=== PATIENT | male | born 1955 | race Caucasian/White ===

== ENCOUNTER → 2024-07-12 06:27 | Day surgery (SDC) | payer MEDICARE, OTHER, SELFPAY ==
[2024-07-12 08:27] LABS: Glucose - Point of Care 126 mg/dl (70-99)
== END ==
LOC: GI 06:27
PROVIDERS: ATTENDING PHYSICIAN Internal Medicine Gastroenterology
DX: Z12.11 Encounter for screening for malignant neoplasm of colon (principal); R19.5 Other fecal abnormalities; K64.8 Other hemorrhoids; K63.5 Polyp of colon; K57.30 Diverticulosis of large intestine without perforation or abscess without bleeding; R13.10 Dysphagia, unspecified; K44.9 Diaphragmatic hernia without obstruction or gangrene; K22.2 Esophageal obstruction; Z98.0 Intestinal bypass and anastomosis status
CPT/HCPCS: 43249; 45385; 88305; 82962; 88341; 88342

== ENCOUNTER → 2024-12-29 10:52 | Outpatient (REF) | payer MEDICARE, OTHER, SELFPAY | LOC: HWRAD 10:52 | PROVIDERS: ATTENDING PHYSICIAN Internal Medicine Critical Care Medicine; FAMILY PHYSICIAN Internal Medicine | DX: F17.210 Nicotine dependence, cigarettes, uncomplicated (principal) | CPT/HCPCS: 71271 ==

== ENCOUNTER → 2025-01-21 09:38 | Outpatient (REF) | payer MEDICARE, OTHER, SELFPAY | LOC: HWRAD 09:38 | PROVIDERS: ATTENDING PHYSICIAN Nurse Practitioner Family; FAMILY PHYSICIAN Internal Medicine | DX: M54.50 Low back pain, unspecified (principal) | CPT/HCPCS: 72110 ==

== ENCOUNTER 2025-05-16 13:02 | Emergency (ER) | payer MEDICARE, OTHER, SELFPAY ==
[2025-05-16 13:04] VITALS: BP 171/98
[2025-05-16 13:24] VITALS: BP 136/89
[2025-05-16] MEDS: PEPCID 40 MG PO (13:58)
[2025-05-16] MEDS: DECADRON 10 MG PO (13:58)
[2025-05-16 14:00] VITALS: BP 127/77
--- NOTE | 2025-05-16 14:08 | ED.GENMED ---
History of Present Illness
General
Chief Complaint: Allergic Reaction
Source: patient
Exam Limitations: none
Time Seen by Provider: 05/16/25 13:35
Nursing documentation reviewed up to this point in time: agreed with
History of Present Illness
History of Present Illness:
69-year-old male past medical history of COPD hypertension hyperlipidemia presenting to the emergency department today with concerns of multiple bee stings prior to arrival. Has significant swelling and thus took a dose of Benadryl and administered
a dose of an EpiPen. At this point only has localized swelling to his upper extremities bilaterally. He spoke with his primary care doctor that advise going to the ER. Denies any significant chest pain shortness of breath trouble swallowing or
breathing no abdominal pain no nausea or vomiting.
Past History
Past History
ED Past Medical History: COPD, HTN, Hypercholesterolemia and Other (Kidney stones, bladder stones, bladder polyps)
ED Past Surgical History: Bowel resection, Cholecystectomy, Orthopedic and Other (hernia repair.)
Social History
Tobacco: Smoker
Alcohol: None
Drug: None
Personal:
Living: with family
Employment: Employed
Family History
Family History: Hypertension and CAD
Review of Systems
Review of Systems
Allergies reviewed?: Yes
All Other Systems: ROS reviewed and negative except as documented in HPI and ROS
Phy Exam
Physical Exam
Physical Exam:
GENERAL: Alert , in no apparent distress
EYE: pupils equal and reactive
NECK: Supple, no significant adenopathy.
ENT: o/p clr, mmm.
CARDIAC: Regular rate and rhythm .
LUNGS: Clear breath sounds bilaterally, no acute respiratory distress, no wheezes/rales/rhonchi
ABDOMEN: Soft, without focal tenderness, no r/g, no cvat
NEUROLOGICAL: Alert and oriented, no focal neuro deficits
SKIN: Warm and dry, skin intact.
MUSCULOSKELETAL: Redness and swelling to the left hand as well as the right forearm no evidence of retained stinger , well perfused.
PSYCH: Normal and appropriate interaction.
Course
Orders/Labs/Results
Orders:
Orders
05/16/25 13:39
Dexamethasone [Decadron] 10 mg PO NOW STA
Famotidine [Pepcid] 40 mg PO NOW STA
Vital Signs
Initial and Last Documented VS:
Initial Vital Signs
Temp Pulse Resp BP Pulse Ox
98.0 F 91 20 171/98 95
05/16/25 13:04 05/16/25 13:04 05/16/25 13:04 05/16/25 13:04 05/16/25 13:04
Last Documented Vital Signs
Temp Pulse Resp BP Pulse Ox
98.0 F 84 20 132/82 94
05/16/25 13:04 05/16/25 15:15 05/16/25 15:15 05/16/25 15:00 05/16/25 15:15
MDM/Problems Addressed
MDM/Problems Addressed:
69-year-old male presenting to the emergency department today after being stung multiple times to his upper extremities bilaterally just prior to arrival. On arrival hypertensive otherwise vital signs are normal. This improved without specific
treatment. He was given dose of dexamethasone due to significant swelling associated with these stings. He does claim to have had severe reactions to bee stings in the past. Patient was given dose of steroid and watched for 2 hours without any
progression. Patient in no distress stable for outpatient management. Return precautions given.
*Pulse Oximetry
SaO2: 94
Oxygen Mode of Delivery: Room air
Patient hypoxic: no (94)
*Critical Care Note
Total Time (30-74mins, 75-104mins- exclusive of procedures): Not Applicable
ED Attending Note
-
Portions of this chart may have been created with voice recognition software.� Occasional wrong word or��sound alike� substitutions may have occurred due to the inherent limitations of voice recognition software.
Discharge Plan
Departure
Patient Disposition: Home (Routine Discharge)
Date of Disposition: 05/16/25
Time of Disposition: 15:28
Patient with high blood pressure during this ER visit?: No
Condition: Good
Covid-19: Not Applicable
Discharge Problem:
Bee sting
Instructions: Hives (DC)
Prescriptions:
New
prednisone 20 mg tablet
40 mg PO DAILY 3 Days Qty: 6 0RF
No Action
ascorbic acid (vitamin C) 250 MG tablet
500 mg PO DAILY
lisinopril 20 MG tablet
20 mg PO DAILY
vitamin E (dl, acetate) 400 UNITS capsule
400 units PO DAILY
budesonide-formoterol [Symbicort] 1 PUFF HFA aerosol inhaler
2 puff inhalation BID
metformin 500 MG tablet
500 mg PO BID
carvedilol 12.5 MG tablet
25 mg PO BID
sumatriptan succinate 50 MG tablet
50 mg PO PRN PRN (Reason: headache)
cyanocobalamin (vitamin B-12) 1,000 MCG tablet
500 mcg PO DAILY
albuterol sulfate 1 PUFF HFA aerosol inhaler
1 puff inhalation R Q4HPRN PRN (Reason: sob)
finasteride 5 MG tablet
5 mg PO DAILY
rosuvastatin 20 MG tablet
20 mg PO QPM
hydrochlorothiazide 12.5 MG tablet
12.5 mg PO DAILY
cholecalciferol (vitamin D3) 2,000 UNITS tablet
2,000 units PO DAILY
multivitamin with folic acid [Tab-A-Grayson] 1 TABLET tablet
1 tab PO DAILY
aspirin 81 MG tablet,delayed release (DR/EC)
81 mg PO DAILY 0RF
diphenhydramine HCl [Banophen] 25 MG capsule
25 mg PO Q6HPRN PRN (Reason: ITCHING) 0RF
prednisone 10 MG tablet
10 mg PO .TAPER Qty: 30 0RF
Rx Instructions:
Take 40mg daily x3days, 30mg daily x3days,
20mg daily x3days, 10mg daily x3days.
epinephrine [EpiPen 2-Adrián] 0.3 MG/0.3 ML auto-injector
0.3 mg IM PRN PRN (Reason: bee sting) Qty: 1 0RF
Referrals:
Martin Gorman DO [Family Provider, Internal Medicine]
Activity Restrictions/Additional Instructions:
You came to the emergency department today after getting stung. Please take the prescribed prednisone as well as famotidine and Zyrtec twice daily over the next few days. Return for any worsening, new or concerning symptoms.
Interventions
Interventions:
*Risk Screen - Suicide Last Done: 05/16/25 14:17
*General Assessment Last Done: 05/16/25 13:04
*Neglect/Abuse Screening Last Done: 05/16/25 14:17
*ED- Fall Risk Assessment Last Done: 05/16/25 13:26
*ED COVID-19 Vaccine History Last Done: 05/16/25 13:26
ED- Cardiac Assessment Last Done: 05/16/25 13:26
ED- Pulmonary Assessment Last Done: 05/16/25 13:26
ED-Skin Assessment Last Done: 05/16/25 13:26
Discharge Date and Time
Print Language: SWEDISH
[2025-05-16 15:00] VITALS: BP 132/82
== END 2025-05-16 15:45 | disposition home or self-care (01) ==
LOC: EMR 13:02
PROVIDERS: EMERGENCY PHYSICIAN Emergency Medicine; FAMILY PHYSICIAN Internal Medicine
DX: T63.441A Toxic effect of venom of bees, accidental (unintentional), initial encounter (principal); R22.32 Localized swelling, mass and lump, left upper limb; L53.9 Erythematous condition, unspecified; I10 Essential (primary) hypertension; E78.00 Pure hypercholesterolemia, unspecified; J44.9 Chronic obstructive pulmonary disease, unspecified; K57.92 Diverticulitis of intestine, part unspecified, without perforation or abscess without bleeding; F17.200 Nicotine dependence, unspecified, uncomplicated; Z86.74 Personal history of sudden cardiac arrest; Z87.442 Personal history of urinary calculi; Z90.49 Acquired absence of other specified parts of digestive tract; Z98.0 Intestinal bypass and anastomosis status; Z91.038 Other insect allergy status
CPT/HCPCS: 99283

== ENCOUNTER 2025-08-08 12:24 | Emergency (ER) | payer MEDICARE, OTHER, SELFPAY ==
[2025-08-08 12:29] VITALS: BP 168/91
[2025-08-08 13:27] VITALS: BMI 27.7
--- NOTE | 2025-08-08 14:01 | ED.GENMED ---
History of Present Illness
General
Chief Complaint: Back Pain
Source: patient
Exam Limitations: none
Time Seen by Provider: 08/08/25 13:09
Nursing documentation reviewed up to this point in time: agreed with
History of Present Illness
History of Present Illness:
70-year-old male with history of COPD, HTN, HLD presents for right lower back pain. Has been seeing chiropractor for past 4 weeks for low back pain initially provided some relief. 4 days ago at his last visit he states he was told his right leg is
shorter and he had more intense manipulation therapy. That day it felt somewhat better but pain has become worse past few days and this a.m. the most painful and radiating into right groin, reaching a severity of 10 out of 10 upon waking this
morning. The pain is described as sharp and shooting across his lower back and has been incapacitating. He stated, �it bent me over� due to the intensity of the pain.
PCP is Dr. Gorman, is aware of the back issues. He denies any associated chest pain, urinary problems, or bowel movement issues. The pain ranges from 2 to 3 while resting but escalates to 10 when attempting movement. He is retired, smokes,
and consumes alcohol socially.
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
Denies fever/chills.
Past History
Past History
ED Past Medical History: COPD, HTN, Hypercholesterolemia and Other (Kidney stones, bladder stones, bladder polyps)
ED Past Surgical History: Bowel resection, Cholecystectomy, Orthopedic and Other (hernia repair.)
Social History
Tobacco: Smoker
Alcohol: None
Drug: None
Personal:
Living: with family
Employment: Employed
Family History
Family History: Hypertension and CAD
Review of Systems
Review of Systems
Allergies reviewed?: Yes
All Other Systems: ROS reviewed and negative except as documented in HPI and ROS
Constitutional: Denies fever
Respiratory: Denies trouble breathing
Cardiac: Denies chest pain
ABD/GI: Denies abdominal pain
: Denies incontinence or difficulty voiding
Musculoskeletal: Reports back pain (R lower back sometimes radiates across lower back and into right groin)
Skin: Reports no symptoms
Neurological: Denies weakness or numbness
Phy Exam
Physical Exam
Physical Exam:
GENERAL: No acute distress. A&Ox3.
CONSTITUTIONAL: Afebrile.
RESPIRATORY: Regular respirations, nonlabored, lungs clear.
CARDIOVASCULAR: Regular rate and rhythm, no murmurs, no rubs.
GI: Soft, nontender, normal BS
MUSCULOSKELETAL: Point tender over lower right back/ right upper sacroiliac joint/pelvis. the rest of the back is nontender. No spinal bony tenderness. Significant limited ROM due to pain. Bilateral SLR to 45 degrees off bed done easily but with
pain. Well perfused.
SKIN: Warm, dry, pink
PSYCH: Normal mood and affect. Well kept, interactive and appropriate
NEUROLOGIC: Awake, alert and oriented. No focal neurological deficits
Course
Orders/Labs/Results
Orders:
Orders
08/08/25 14:18
Dexamethasone [Decadron] 10 mg PO NOW STA
Diazepam [Valium] 5 mg PO NOW STA
Ketorolac [Toradol] 30 mg IM NOW STA
Vital Signs
Initial and Last Documented VS:
Initial Vital Signs
Temp Pulse Resp Pulse Ox
98.4 F 76 16 95
08/08/25 12:25 08/08/25 12:25 08/08/25 12:25 08/08/25 12:25
Last Documented Vital Signs
Temp Pulse Resp BP Pulse Ox
98.4 F 85 18 158/70 95
08/08/25 12:25 08/08/25 15:27 08/08/25 15:27 08/08/25 15:27 08/08/25 15:27
MDM/Problems Addressed
Differential Diagnosis Includes:
Lumbar sprain/strain, sciatica, herniated disc, DJD, osteoarthritis
MDM/Problems Addressed:
70-year-old male with history of COPD, HTN, HLD presents for right lower back pain. Has been seeing chiropractor for past 4 weeks for low back pain initially provided some relief. 4 days ago at his last visit he states he was told his right leg is
shorter and he had more intense manipulation therapy. That day it felt somewhat better but pain has become worse past few days and this a.m. the most painful and radiating into right groin, reaching a severity of 10 out of 10 upon waking this
morning. The pain is described as sharp and shooting across his lower back and has been incapacitating. He stated, �it bent me over� due to the intensity of the pain.
PCP is Dr. Gorman, is aware of the back issues. He denies any associated chest pain, urinary problems, or bowel movement issues. Denies fever/chills. The pain ranges from 2 to 3 while resting but escalates to 10 when attempting movement. He
is retired, smokes, and consumes alcohol socially.
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
Afebrile, no infectious symptoms
Pt had LS spine xrays 01/2025 showing mild DJD, no indication to repeat at this time.
No neuro deficits.
Pt had similar episode in past and was given steroid taper and muscle relaxant.
Rx for Flexeril and steroid taper sent to his pharmacy
*Pulse Oximetry
SaO2: 95
Oxygen Mode of Delivery: Room air
Patient hypoxic: not evaluated
*Critical Care Note
Total Time (30-74mins, 75-104mins- exclusive of procedures): Not Applicable
ED Attending Note
-
Portions of this chart may have been created with voice recognition software.� Occasional wrong word or��sound alike� substitutions may have occurred due to the inherent limitations of voice recognition software.
Discharge Plan
Departure
Patient Disposition: Home (Routine Discharge)
Date of Disposition: 08/08/25
Time of Disposition: 14:40
Patient with high blood pressure during this ER visit?: No
Condition: Good
Discharge Problem:
Acute low back pain with right-sided sciatica
Instructions: Low Back Pain (DC), Sciatica (DC)
Prescriptions:
New
cyclobenzaprine 10 mg tablet
10 mg PO TID PRN (Reason: Low back pain/spasms) Qty: 30 0RF
prednisone 10 mg Tablet
See Rx Instructions .ROUTE .COMPLEX Qty: 30 0RF
Rx Instructions:
Take By Mouth:
40 mg daily x3 days, 30 mg daily x3 days,
20 mg daily x3 days, 10 mg daily x3 days.
No Action
ascorbic acid (vitamin C) 250 MG tablet
500 mg PO DAILY
lisinopril 20 MG tablet
20 mg PO DAILY
vitamin E (dl, acetate) 400 UNITS capsule
400 units PO DAILY
budesonide-formoterol [Symbicort] 1 PUFF HFA aerosol inhaler
2 puff inhalation BID
metformin 500 MG tablet
500 mg PO BID
carvedilol 12.5 MG tablet
25 mg PO BID
sumatriptan succinate 50 MG tablet
50 mg PO PRN PRN (Reason: headache)
cyanocobalamin (vitamin B-12) 1,000 MCG tablet
500 mcg PO DAILY
albuterol sulfate 1 PUFF HFA aerosol inhaler
1 puff inhalation R Q4HPRN PRN (Reason: sob)
finasteride 5 MG tablet
5 mg PO DAILY
rosuvastatin 20 MG tablet
20 mg PO QPM
hydrochlorothiazide 12.5 MG tablet
12.5 mg PO DAILY
cholecalciferol (vitamin D3) 2,000 UNITS tablet
2,000 units PO DAILY
multivitamin with folic acid [Tab-A-Grayson] 1 TABLET tablet
1 tab PO DAILY
aspirin 81 MG tablet,delayed release (DR/EC)
81 mg PO DAILY 0RF
diphenhydramine HCl [Banophen] 25 MG capsule
25 mg PO Q6HPRN PRN (Reason: ITCHING) 0RF
prednisone 10 MG tablet
10 mg PO .TAPER Qty: 30 0RF
Rx Instructions:
Take 40mg daily x3days, 30mg daily x3days,
20mg daily x3days, 10mg daily x3days.
epinephrine [EpiPen 2-Adrián] 0.3 MG/0.3 ML auto-injector
0.3 mg IM PRN PRN (Reason: bee sting) Qty: 1 0RF
prednisone 20 mg tablet
40 mg PO DAILY 3 Days Qty: 6 0RF
Referrals:
Martin Gorman I., DO [Active, Internal Medicine] - Follow up in 5-7 days
UNKNOWN - PT NOT,INTERVIEWE [Family Provider]
Activity Restrictions/Additional Instructions:
As we discussed, I sent a prescription to your pharmacy for Flexeril (cyclobenzaprine) muscle relaxant to take up to 3 times a day as needed. It can make you sleepy and slow your reflexes so do not drive or operate any machinery within 8 hours of
taking it.
I also sent a prescription to your pharmacy for a prednisone taper. Start it tomorrow as you were given a dose of steroid here today
You may alternate cold and warm compresses or heating pad and stick with whichever feels better.
See your doctor for recheck if you are not a lot better in 1 week or not 100% better in 2 to 3 weeks.
Interventions
Interventions:
*Risk Screen - Suicide Last Done: 08/08/25 12:29
*General Assessment Last Done: 08/08/25 12:29
*Neglect/Abuse Screening Last Done: 08/08/25 12:29
*ED COVID-19 Vaccine History Last Done: 08/08/25 12:29
*ED Influenza Vaccine History Last Done: 08/08/25 12:29
*Nursing Disposition Last Done: 08/08/25 15:32
ED-Musculoskeletal Assessment Last Done: 08/08/25 13:28
Discharge Date and Time
Discharge Date/Time: 08/08/25 15:34
Print Language: FINNISH
[2025-08-08] MEDS: VALIUM 5 MG PO (14:23)
[2025-08-08] MEDS: DECADRON 10 MG PO (14:23)
[2025-08-08] MEDS: TORADOL 30 MG IM (14:23)
[2025-08-08 15:27] VITALS: BP 158/70
== END 2025-08-08 15:34 | disposition home or self-care (01) ==
LOC: EMR 12:24
PROVIDERS: EMERGENCY PHYSICIAN Emergency Medicine
DX: M54.41 Lumbago with sciatica, right side (principal); M47.817 Spondylosis without myelopathy or radiculopathy, lumbosacral region; I10 Essential (primary) hypertension; E78.00 Pure hypercholesterolemia, unspecified; J44.9 Chronic obstructive pulmonary disease, unspecified; F17.200 Nicotine dependence, unspecified, uncomplicated; Z79.2 Long term (current) use of antibiotics; Z82.49 Family history of ischemic heart disease and other diseases of the circulatory system
CPT/HCPCS: 99284; 96372

== ENCOUNTER → 2025-09-05 15:27 | Outpatient (REF) | payer MEDICARE, OTHER, SELFPAY | LOC: PAVMRI 15:27 | PROVIDERS: ATTENDING PHYSICIAN Internal Medicine | DX: M54.16 Radiculopathy, lumbar region (principal); J43.9 Emphysema, unspecified | CPT/HCPCS: 72148 ==